=== PATIENT | male | born 1965 | race American Indian/Alaskan Native ===

== ENCOUNTER 2020-09-23 13:30 | Emergency (ER) | payer SELFPAY ==
[2020-09-23 13:54] VITALS: BP 185/117
--- NOTE | 2020-09-23 14:29 | XRay Report ---
CHEST 2 VIEWS INDICATION: cough. COMPARISON: None. FINDINGS: Support devices: None. Heart: Within normal limits. Lungs/Pleura: No acute air space or interstitial disease. No significant pleural effusion. IMPRESSION: No acute findings. Signer Name: Adonay Momin MD Signed: 09/23/2020 2:24 PM Workstation Name: [id number]
--- NOTE | 2020-09-23 14:53 | Emergency Department Report ---
ED General Adult HPI - General Chief complaint: Headache Stated complaint: C/O HEADACHES Time Seen by Provider: 09/23/20 14:02 Source: patient Mode of arrival: Ambulatory Limitations: No Limitations - History of Present Illness Initial comments: 55-year-old -Citizen Of [place] male patient presents with complaints of intermittent headaches x1.5 weeks. Patient states he was placed on lisinopril for his blood pressure 3 months ago and had developed a daily cough with taking this medicine. He states the medication is lisinopril and that 1.5 weeks ago, h e stopped taking it due to the cough. Patient states the cough has subsided since discontinuing lisinopril and denies any leg pain/swelling or facial swelling, chest pain, shortness of breath, headaches, or dizziness. No current headache per patient or numbness/tingling/weakness in his limbs. He denies any other past medical history. He is not currently following with a PCP. - Related Data Previous Rx's Medication Instructions Recorded Last Taken Type amLODIPine 10 mg PO DAILY #30 tab 09/23/20 Unknown Rx Allergies Allergy/AdvReac Type Severity Reaction Status Date / Time No Known Allergies Allergy Unverified 09/23/20 13:54 ED Review of Systems ROS: Stated complaint: C/O HEADACHES Other details as noted in HPI Constitutional: denies: chills, fever, malaise Respiratory: see HPI. denies: shortness of breath Cardiovascular: denies: chest pain Gastrointestinal: denies: abdominal pain, nausea, vomiting Neurological: as per HPI. denies: weakness, numbness, paresthesias, confusion, abnormal gait Hematological/Lymphatic: denies: swollen glands ED Past Medical Hx - Past Medical History Previous Medical History?: Yes Hx Hypertension: Yes - Medications Home Medications: Home Medications Medication Instructions Recorded Confirmed Last Taken Type amLODIPine 10 mg PO DAILY #30 tab 09/23/20 Unknown Rx ED Physical Exam - General Limitations: No Limitations General appearance: alert, in no apparent distress, obese - Head Head exam: Present: atraumatic, normocephalic - Eye Eye exam: Present: normal appearance, PERRL, EOMI. Absent: scleral icterus - ENT ENT exam: Present: normal exam - Neck Neck exam: Present: normal inspection, full ROM - Respiratory Respiratory exam: Present: normal lung sounds bilaterally. Absent: respiratory distress - Cardiovascular Cardiovascular Exam: Present: regular rate, normal rhythm. Absent: systolic murmur, diastolic murmur, rubs, gallop - GI/Abdominal GI/Abdominal exam: Present: soft. Absent: distended, tenderness, guarding, rebound, rigid - Extremities Exam Extremities exam: Present: full ROM. Absent: calf tenderness (No swelling noted to legs bilaterally or tenderness) - Back Exam Back exam: Present: full ROM - Neurological Exam Neurological exam: Present: alert, oriented X3, CN II-XII intact, normal gait. Absent: motor sensory deficit - Expanded Neurological Exam Expanded Cerebellar function: Finger to Nose: Normal, Heel to Askew: Normal, Romberg: Normal Motor strength exam: RUE: 5, LUE: 5, RLE: 5, LLE: 5 - Psychiatric Psychiatric exam: Present: normal affect, normal mood - Skin Skin exam: Present: warm, dry, intact, normal color. Absent: rash, cyanosis, diaphoretic, pallor, ecchymosis ED Course Vital Signs 09/23/20 13:54 Temperature 98.9 F Pulse Rate 74 Respiratory 20 Rate Blood Pressure 185/117 O2 Sat by Pulse 100 Oximetry ED Medical Decision Making - Lab Data Result diagrams: 09/23/20 14:20 09/23/20 14:20 Lab Results 09/23/20 09/23/20 Range/Units 14:20 14:20 WBC 6.4 (4.5-11.0) K/mm3 RBC 5.54 H (3.65-5.03) M/mm3 Hgb 15.7 H (11.8-15.2) gm/dl Hct 47.7 H (35.5-45.6) % MCV 86 (84-94) fl MCH 28 (28-32) pg MCHC 33 (32-34) % RDW 15.6 H (13.2-15.2) % Plt Count 280 (140-440) K/mm3 Lymph % (Auto) 35.0 (13.4-35.0) % [place] % (Auto) 10.2 H (0.0-7.3) % Eos % (Auto) 2.9 (0.0-4.3) % Baso % (Auto) 1.1 (0.0-1.8) % Lymph # (Auto) 2.2 (1.2-5.4) K/mm3 [place] # (Auto) 0.7 (0.0-0.8) K/mm3 Eos # (Auto) 0.2 (0.0-0.4) K/mm3 Baso # (Auto) 0.1 (0.0-0.1) K/mm3 Seg Neutrophils % 50.8 (40.0-70.0) % Seg Neutrophils # 3.2 (1.8-7.7) K/mm3 Sodium 135 L (137-145) mmol/L Potassium 4.3 (3.6-5.0) mmol/L Chloride 102.5 (98-107) mmol/L Carbon Dioxide 24 (22-30) mmol/L Anion Gap 13 mmol/L BUN 11 (9-20) mg/dL Creatinine 1.1 (0.8-1.3) mg/dL Estimated GFR > 60 ml/min BUN/Creatinine Ratio 10 % Glucose 93 (75-100) mg/dL Calcium 9.5 (8.4-10.2) mg/dL - Radiology Data Radiology results: report reviewed CHEST 2 VIEWS INDICATION: cough. COMPARISON: None. FINDINGS: Support devices: None. Heart: Within normal limits. Lungs/Pleura: No acute air space or interstitial disease. No significant pleural effusion. IMPRESSION: No acute findings. - Medical Decision Making 55-year-old -Citizen [place] male patient presents with complaints of intermittent headaches x1.5 weeks. Patient states he was placed on lisinopril for his blood pressure 3 months ago and had developed a daily cough with taking this medicine. He states the medication is lisinopril and that 1.5 weeks ago, he stopped taking it due to the cough. Patient states the cough has subsided since discontinuing lisinopril and denies any leg pain/swelling or facial swelling, chest pain, shortness of breath, headaches, or dizziness. No current headache per patient or numbness/tingling/weakness in his limbs. He denies any other past medical history. He is not currently following with a PCP. No significant abnormalities noted on chest x-ray or labs. Intermittent headaches likely due to uncontrolled blood pressure. Patient informed to continue to avoid lisinopril. Patient will start on amlodipine today and follow-up with a primary care provider-referral provided. Discussed signs and symptoms that should prompt immediate return to the emergency department in detail with patient who verbalizes understanding. He is neurologically intact, well-appearing, he is stable for discharge home. Critical care attestation.: If time is entered above; I have spent that time in minutes in the direct care of this critically ill patient, excluding procedure time. ED Disposition Clinical Impression: Cough due to NICHOLE inhibitor, Hypertension, essential Disposition: DC-01 TO HOME OR SELFCARE Is pt being admited?: No Condition: Stable Instructions: Hypertension (ED) Prescriptions: amLODIPine 10 mg PO DAILY #30 tab Referrals: PRIMARY CARE, [Primary Care Provider] - 3-5 Days [facility] [Provider Group] - 3-5 Days Forms: Work/School Release Form(ED)
[2020-09-23 14:57] LABS: Basophils # (Auto) 0.1 K/mm3 (0.0-0.1); Basophils % (Auto) 1.1 % (0.0-1.8); Eosinophils # (Auto) 0.2 K/mm3 (0.0-0.4); Eosinophils % (Auto) 2.9 % (0.0-4.3); Hematocrit 47.7 % (35.5-45.6); Hemoglobin 15.7 gm/dl (11.8-15.2); Lymphocytes # (Auto) 2.2 K/mm3 (1.2-5.4); Mean Corpuscular HGB Conc 33 % (32-34); Mean Corpuscular Volume 86 fl (84-94); Monocytes # (Auto) 0.7 K/mm3 (0.0-0.8); Monocytes % (Auto) 10.2 % (0.0-7.3); Platelet Count 280 K/mm3 (140-440); Red Blood Count 5.54 M/mm3 (3.65-5.03); Red Cell Distribution Width 15.6 % (13.2-15.2)
[2020-09-23 15:09] LABS: BUN/Creatinine Ratio 10; Blood Urea Nitrogen 11 mg/dL (9-20); Calcium 9.5 mg/dL (8.4-10.2); Hemolysis Index 11
== END 2020-09-23 16:01 | disposition home or self-care (01) ==
LOC: ED 13:30
DX: R51.9 Headache, unspecified (principal); E11.9 Type 2 diabetes mellitus without complications
CPT/HCPCS: 36415; 71046; 80048; 85025; 99283